=== PATIENT | female | born 1970 | race Caucasian/White ===

== ENCOUNTER 2018-11-13 07:37 | Emergency (ER) | payer MEDICAID ==
[~2018-11-13] VITALS: Ht 160 cm; Wt 69.0 kg
[2018-11-13 07:43] VITALS: BP 117/51
[2018-11-13] MEDS ORDERED: METF-414 PO (07:46)
[2018-11-13] MEDS ORDERED: ACETAMINOPHEN 325MG TABLET PO ONE (08:45)
== END 2018-11-13 11:40 | disposition home or self-care (01) ==
LOC: ER 08:11
DX: S46.911A Strain of unspecified muscle, fascia and tendon at shoulder and upper arm level, right arm, initial encounter (principal); R51 Headache; R07.81 Pleurodynia; E11.9 Type 2 diabetes mellitus without complications; V49.9XXA Car occupant (driver) (passenger) injured in unspecified traffic accident, initial encounter; Y93.89 Activity, other specified; Y92.89 Other specified places as the place of occurrence of the external cause; Y99.8 Other external cause status
CPT/HCPCS: 71045; 73030; 93005; 99283